=== PATIENT | female | born 1995 | race African-American/Black ===

== ENCOUNTER 2020-03-28 16:13 | Inpatient (IN) | payer BC ==
[~2020-03-28] VITALS: Ht 157.5 cm; Wt 56.8 kg
[2020-03-28] MEDS ORDERED: MORPHINE SULFATE 10 MG/ML VIAL. IV ONE (16:45)
[2020-03-28 16:56] LABS: BILIRUBIN,URINE NEGATIVE (NEG); CLARITY,URINE CLEAR; COLOR,URINE AMBER; NITRITE,URINE NEGATIVE (NEG); PH,URINE 5.5 (<5.0-8.0); PROTEIN,URINE NEGATIVE (NEG-TRACE); UROBILINOGEN,URINE 0.2 mg/dL (0.2 mg/dL)
[2020-03-28 17:00] LABS: BARBITURATES NEG (NEG); BENZODIAZEPINES NEG (NEG); CANNABINOIDS NEG (NEG); COCAINE NEG (NEG); METHADONE NEG (NEG); OPIATES NEG (NEG); PHENCYCLIDINE NEG (NEG)
[2020-03-28 17:02] LABS: SQUAMOUS EPITHELIAL CELL,UR MOD /LPF
[2020-03-28 17:04] LABS: BACTERIA,URINE MODERATE /HPF (0-FEW); RBC,URINE RARE /HPF (0-2); WBC,URINE OCC /HPF (0-4)
[2020-03-28 17:09] LABS: AMPHETAMINE/METHAMPHETAMINE NEG (NEG)
[2020-03-28 17:16] LABS: BASO % 0 % (0-3); EOS % 0 % (0-3); HEMATOCRIT 30.8 % (36.0-47.0); HEMOGLOBIN 10.6 g/dL (12.0-15.5); LYMPH # 0.7 x10^3/uL (1.0-4.8); LYMPH % 8 % (24-48); MEAN CORPUSCULAR HEMOGLOBIN 30 pg (25-35); MEAN CORPUSCULAR HGB CONC 35 g/dL (31-37); MEAN CORPUSCULAR VOLUME 88 fL (79-100); MONO # 0.5 x10^3/uL (0.0-1.1); MONO % 5 % (0-9); NEUT # 8.1 x10^3/uL (1.8-7.7); NEUT % 87 % (31-73); PLATELET COUNT 333 x10^3/uL (140-400); RED BLOOD COUNT 3.52 x10^6/uL (3.50-5.40); RED CELL DISTRIBUTION WIDTH 13.1 % (11.5-14.5); WHITE BLOOD COUNT 9.3 x10^3/uL (4.0-11.0)
[2020-03-28 17:25] LABS: CALCIUM 8.8 mg/dL (8.5-10.1); CREATININE 0.9 mg/dL (0.6-1.0); GFR 93.1
[2020-03-28 17:31] LABS: ALBUMIN 3.4 g/dL (3.4-5.0); ALBUMIN/GLOBULIN RATIO 0.9 (1.0-1.7); TOTAL BILIRUBIN 0.4 mg/dL (0.2-1.0); TOTAL PROTEIN 7.1 g/dL (6.4-8.2)
--- NOTE | 2020-03-28 17:46 | RAD ---
OB ultrasound less than 14 weeks and transvaginal OB ultrasound HISTORY: Vaginal bleeding and pain, miscarriage last week Sonographic examination of the was performed by transabdominal and endovaginal technique. Multiple static images were obtained. Ultrasound transvaginal less than 14 weeks: The endometrium measures 1.4 cm in diameter. The junctional zone of the uterus is discrete. There is a complex fluid collection superior to the uterus. Complex fluid is seen in the right adnexa. The ovaries are not seen. Transvaginal OB ultrasound: The endometrium is better seen and measures 9 mm in thickness. There is complex free fluid seen. There is no yolk sac or gestational sac. IMPRESSION: Abnormal study with significant complex free fluid and no evidence of intrauterine . This could be a ruptured ectopic . The patient has a history of miscarriage and therefore correlation with serial quantitative beta hCG is recommended. If the beta hCG is 0, this could be a ruptured hemorrhagic cyst. Electronically signed by: Leif Scott III, MD (03/28/2020 5:43 PM) [facility]
[2020-03-28] MEDS ORDERED: MORPHINE SULFATE 4 MG/ML VIAL. IV PRN (19:00)
[2020-03-28] MEDS ORDERED: ONDANSETRON PF 4 MG/2 ML VIAL. IV PRN (19:00)
[2020-03-28] MEDS ORDERED: IV NORMAL SALINE 1000ML BAG 1,000 ML IV ONE (19:00)
--- NOTE | 2020-03-28 19:19 | PHYS DOC ---
Past Medical History Past Medical History: No Pertinent History Past Surgical History: No Surgical History Smoking Status: Never Smoker Alcohol Use: None General Adult EDM: Chief Complaint: ABDOMINAL PAIN HPI: HPI: Patient is a 24 year old female patient with no significant medical history who presents today complaining of vaginal bleeding in as well as severe left lower quadrant abdominal pain. Patient states 2 weeks ago she was seen at [facility] for lower abdominal pain and had an incidental finding of a positive test. At that point she became a 2 para 0, 1 miscarriage. She states she was evaluated and sent home. She states 3 days later she developed increased lower abdominal pain specifically on the left, she states she went to [facility] ED, she states she was evaluated and told she is having a miscarriage. She states she has had increased abdominal pain, she states the bleeding has not worsened is been small to trace amount since she was seen at [facility] ED. She states today that left lower quadrant pain got worse. She describes the pain as sharp and constant worse when she sits up. Denies any nausea or vomiting. Denies any fever. She states she has an appointment to follow-up with her own [employer] on April 06, 2020. She states the pain is worse she cannot wait until then. She states she was started on Flagyl for BV a couple days ago when she was seen at [facility] ED. Review of Systems: Review of Systems: Constitutional: Denies fever or chills. [] Eyes: Denies change in visual acuity. [] HENT: Denies nasal congestion or sore throat. [] Respiratory: Denies cough or shortness of breath. [] Cardiovascular: Denies chest pain or edema. [] GI: Reports left lower quadrant abdominal pain and vaginal bleeding, denies nausea, vomiting, bloody stools or diarrhea. [] : Denies dysuria. [] Musculoskeletal: Denies back pain or joint pain. [] Integument: Denies rash. [] Neurologic: Denies headache, focal weakness or sensory changes. [] Psychiatric: Denies depression or anxiety. [] Heart Score: Risk Factors: Risk Factors: DM, Current or recent (<one month) smoker, HTN, HLP, family history of CAD, obesity. Risk Scores: Score 0 - 3: 2.5% MACE over next 6 weeks - Discharge Home Score 4 - 6: 20.3% MACE over next 6 weeks - Admit for Clinical Observation Score 7 - 10: 72.7% MACE over next 6 weeks - Early Invasive Strategies Current Medications: Current Medications Medications (Trade) Dose Ordered Sig/Humphrey Start Time Stop Time Status Last Admin Dose Admin Morphine Sulfate (Morphine Sulfate) 5 mg 1X ONCE 03/28/20 16:45 03/28/20 17:04 DC 03/28/20 17:33 5 MG Allergies: Allergies: Allergies Coded Allergies Type Severity Reaction Last Updated Verified No Known Drug Allergies 03/28/20 No Physical Exam: PE: Constitutional: Well developed, well nourished, no acute distress, non-toxic appearance. [] HENT: Normocephalic, atraumatic, bilateral external ears normal, oropharynx moist, no oral exudates, nose normal. [] Eyes: PERRLA, EOMI, conjunctiva normal, no discharge. [] Neck: Normal range of motion, no tenderness, supple, no stridor. [] Cardiovascular:Heart rate regular rhythm, no murmur [] Lungs & Thorax: Bilateral breath sounds clear to auscultation [] Abdomen: Bowel sounds normal, soft, no tenderness, no masses, no pulsatile masses. [] Pelvic exam External pelvic appears normal, cervix is visualized, appears closed, there is small amount of dark blood in the vaginal vault, there is moderate left adnexal tenderness, no right adnexal tenderness, no CMT. Skin: Warm, dry, no erythema, no rash. [] Back: No tenderness, no CVA tenderness. [] Extremities: No tenderness, no cyanosis, no clubbing, ROM intact, no edema. [] Neurologic: Alert and oriented X 3, normal motor function, normal sensory function, no focal deficits noted. [] Psychologic: Affect normal, judgement normal, mood normal. [] Current Patient Data: Labs: Laboratory Tests Test 03/28/20 16:24 03/28/20 16:31 03/28/20 17:05 Urine Collection Type Unknown Urine Color Nesha Urine Clarity Clear Urine pH 5.5 (<5.0-8.0) Urine Specific [place] >=1.030 (1.000-1.030) Urine Protein Negative mg/dL (NEG-TRACE) Urine Glucose (UA) Negative mg/dL (NEG) Urine Ketones (Stick) 40 mg/dL (NEG) Urine Blood Small (NEG) Urine Nitrite Negative (NEG) Urine Bilirubin Negative (NEG) Urine Urobilinogen Dipstick 0.2 mg/dL (0.2 mg/dL) Urine Leukocyte Esterase Negative (NEG) Urine RBC Rare /HPF (0-2) Urine WBC Occ /HPF (0-4) Urine Squamous Epithelial Cells Mod /LPF Urine Bacteria Moderate /HPF (0-FEW) Urine Mucus Marked /LPF Urine Opiates Screen Neg (NEG) Urine Methadone Screen Neg (NEG) Urine Barbiturates Neg (NEG) Urine Phencyclidine Screen Neg (NEG) Urine Amphetamine/Methamphetamine Neg (NEG) Urine Benzodiazepines Screen Neg (NEG) Urine Cocaine Screen Neg (NEG) Urine Cannabinoids Screen Neg (NEG) Urine Ethyl Alcohol Neg (NEG) POC Urine HCG, Qualitative Hcg positive (Negative) White Blood Count 9.3 x10^3/uL (4.0-11.0) Red Blood Count 3.52 x10^6/uL (3.50-5.40) Hemoglobin 10.6 g/dL (12.0-15.5) L Hematocrit 30.8 % (36.0-47.0) L Mean Corpuscular Volume 88 fL (79-100) Mean Corpuscular Hemoglobin 30 pg (25-35) Mean Corpuscular Hemoglobin Concent 35 g/dL (31-37) Red Cell Distribution Width 13.1 % (11.5-14.5) Platelet Count 333 x10^3/uL (140-400) Neutrophils (%) (Auto) 87 % (31-73) H Lymphocytes (%) (Auto) 8 % (24-48) L Monocytes (%) (Auto) 5 % (0-9) Eosinophils (%) (Auto) 0 % (0-3) Basophils (%) (Auto) 0 % (0-3) Neutrophils # (Auto) 8.1 x10^3/uL (1.8-7.7) H Lymphocytes # (Auto) 0.7 x10^3/uL (1.0-4.8) L Monocytes # (Auto) 0.5 x10^3/uL (0.0-1.1) Eosinophils # (Auto) 0.0 x10^3/uL (0.0-0.7) Basophils # (Auto) 0.0 x10^3/uL (0.0-0.2) Platelet Estimate Pending Maternal Serum HCG Beta Subunit 803 mIU/mL (0-5) H Sodium Level 136 mmol/L (136-145) Potassium Level 4.0 mmol/L (3.5-5.1) Chloride Level 102 mmol/L (98-107) Carbon Dioxide Level 26 mmol/L (21-32) Anion Gap 8 (6-14) Blood Urea Nitrogen 16 mg/dL (7-20) Creatinine 0.9 mg/dL (0.6-1.0) Estimated GFR (Cockcroft-Gault) 93.1 BUN/Creatinine Ratio 18 (6-20) Glucose Level 100 mg/dL (70-99) H Calcium Level 8.8 mg/dL (8.5-10.1) Total Bilirubin 0.4 mg/dL (0.2-1.0) Aspartate Amino Transferase (AST) 21 U/L (15-37) Alanine Aminotransferase (ALT) 58 U/L (14-59) Alkaline Phosphatase 45 U/L (46-116) L Total Protein 7.1 g/dL (6.4-8.2) Albumin 3.4 g/dL (3.4-5.0) Albumin/Globulin Ratio 0.9 (1.0-1.7) L Ethyl Alcohol Level < 10 mg/dL (0-10) Laboratory Tests 03/28/20 17:05 Laboratory Tests 03/28/20 17:05 Microbiology 03/28/20 Wet Prep - Final, Complete Vital Signs: Vital Signs Date Time Temp Pulse Resp B/P (MAP) Pulse Ox O2 Delivery O2 Flow Rate FiO2 03/28/20 19:11 16 98 Room Air 03/28/20 16:30 97.8 108 134/62 (86) 97.8 EKG: EKG: [] Radiology/Procedures: Radiology/Procedures: PROCEDURE: OB <14 WKS W/TV OB ultrasound less than 14 weeks and transvaginal OB ultrasound HISTORY: Vaginal bleeding and pain, miscarriage last week Sonographic examination of the was performed by transabdominal and endovaginal technique. Multiple static images were obtained. Ultrasound transvaginal less than 14 weeks: The endometrium measures 1.4 cm in diameter. The junctional zone of the uterus is discrete. There is a complex fluid collection superior to the uterus. Complex fluid is seen in the right adnexa. The ovaries are not seen. Transvaginal OB ultrasound: The endometrium is better seen and measures 9 mm in thickness. There is complex free fluid seen. There is no yolk sac or gestational sac. IMPRESSION: Abnormal study with significant complex free fluid and no evidence of intrauterine . This could be a ruptured ectopic . The patient has a history of miscarriage and therefore correlation with serial quantitative beta hCG is recommended. If the beta hCG is 0, this could be a ruptured hemorrhagic cyst. Electronically signed by: Maurisio Scott III, MD (03/28/2020 5:43 PM) [facility] DICTATED and SIGNED BY: MAURISIO SCOTT III, MD DATE: 03/28/201742 Course & Med Decision Making: Course & Med Decision Making Pertinent Labs and Imaging studies reviewed. (See chart for details) This is a 24-year-old female patient presenting to the ED today complaining of vaginal bleeding and abdominal pain in . See HPI. Patient was seen 2 weeks ago at [facility] and was told she is , this was an incidental finding. She started bleeding 3 days later and was seen at [facility] ED and was told she is having a miscarriage. She states she is continued bleeding but small amount to trace amount of blood, she states she is continued to have abdominal pain specifically in the left lower quadrant which is gotten worse today. Positive urine hCG, beta-hCG 803, hemoglobin 10.6, hematocrit 30.8. Temperature 97.8, heart rate 108, respirations 16, blood pressure 134/62, O2 sats 98% on room air. OB ultrasound was noted for significant amount of complex free fluid with no evidence of IUP. This could be an ectopic considering her history of miscarriage last week. Spoke with Dr. Das who accepted patient for admission. Amy Disclaimer: Amy Disclaimer: This electronic medical record was generated, in whole or in part, using a voice recognition dictation system. Departure Departure Impression: Primary Impression: Ruptured ectopic Disposition: ADMITTED INPATIENT Condition: STABLE Referrals: UNKNOWN PCP NAME (PCP) Justicifation of Admission Dx: Justifications for Admission: Justification of Admission Dx: Yes (raptured ectopic ) NOÉ FRIEND APRN Mar 28, 2020 19:19
[2020-03-28 19:21] LABS: % BASOS 1 % (0-3); % LYMPHS 9 % (24-48); % MONOS 6 % (0-10); % SEGS 84 % (35-66); HYPOCHROMIA SLIGHT; PLT ESTIMATE ADEQUATE (ADEQUATE)
[2020-03-28 19:50] VITALS: BP 110/68
[2020-03-28] MEDS ORDERED: oxyCODONE/APAP 5/325 1 TAB TABLET PO PRN ×2 (20:00→20:15)
[2020-03-28] MEDS ORDERED: IV NORMAL SALINE 1000ML BAG 1,000 ML IV PRN (20:00)
[2020-03-29 00:15] VITALS: BP 114/59
[2020-03-29 04:40] VITALS: BP 106/58
[2020-03-29 07:56] LABS: BASO % 0 % (0-3); EOS # 0.1 x10^3/uL (0.0-0.7); EOS % 2 % (0-3); HEMATOCRIT 27.6 % (36.0-47.0); HEMOGLOBIN 9.1 g/dL (12.0-15.5); LYMPH # 1.3 x10^3/uL (1.0-4.8); LYMPH % 17 % (24-48); MEAN CORPUSCULAR HEMOGLOBIN 29 pg (25-35); MEAN CORPUSCULAR HGB CONC 33 g/dL (31-37); MEAN CORPUSCULAR VOLUME 88 fL (79-100); MONO # 0.5 x10^3/uL (0.0-1.1); MONO % 7 % (0-9); NEUT # 5.5 x10^3/uL (1.8-7.7); NEUT % 74 % (31-73); PLATELET COUNT 288 x10^3/uL (140-400); RED BLOOD COUNT 3.12 x10^6/uL (3.50-5.40); RED CELL DISTRIBUTION WIDTH 12.9 % (11.5-14.5); WHITE BLOOD COUNT 7.5 x10^3/uL (4.0-11.0)
--- NOTE | 2020-03-29 09:25 | PDOC ---
GENERAL General: 24yrs old lady one . came to ER for with bleeding. VITAL SIGNS Vital Signs/I&O: Vital Signs Date Time Temp Pulse Resp B/P (MAP) Pulse Ox O2 Delivery O2 Flow Rate FiO2 03/29/20 04:40 98.2 77 14 106/58 (74) 100 Room Air 98.2 I & O 03/28/20 03/28/20 03/29/20 15:00 23:00 07:00 Intake Total 450 ml Balance 450 ml ALLERGIES Allergies: Allergies Coded Allergies Type Severity Reaction Last Updated Verified No Known Drug Allergies 03/28/20 No MEDS Medications: Current Medications Medications (Trade) Dose Ordered Sig/Humphrey Route PRN Reason Start Time Stop Time Status Last Admin Dose Admin Morphine Sulfate (Morphine Sulfate) 5 mg 1X ONCE IV 03/28/20 16:45 03/28/20 17:04 DC 03/28/20 17:33 Ondansetron HCl (Zofran) 4 mg PRN Q8HRS PRN IV NAUSEA/VOMITING 03/28/20 19:00 03/29/20 18:59 03/28/20 19:11 Morphine Sulfate (Morphine Sulfate) 4 mg PRN Q2HR PRN IV PAIN 03/28/20 19:00 03/29/20 18:59 03/28/20 19:11 Sodium Chloride 1,000 ml @ 100 mls/hr 1X ONCE IV 03/28/20 19:00 03/28/20 20:48 DC 03/28/20 19:12 Sodium Chloride 1,000 ml @ 125 mls/hr CONT PRN IV MAINT. IV 03/28/20 20:00 03/29/20 04:20 Oxycodone/ Acetaminophen (Percocet 5/325) 2 tab PRN Q4HRS PRN PO SEVERE PAIN 03/28/20 20:15 03/28/20 21:21 LAB Lab: Laboratory Tests Test 03/28/20 16:24 03/28/20 16:31 03/28/20 17:05 03/29/20 07:25 Urine Collection Type Unknown Urine Color Nesha Urine Clarity Clear Urine pH 5.5 (<5.0-8.0) Urine Specific [place] >=1.030 (1.000-1.030) Urine Protein Negative mg/dL (NEG-TRACE) Urine Glucose (UA) Negative mg/dL (NEG) Urine Ketones (Stick) 40 mg/dL (NEG) Urine Blood Small (NEG) Urine Nitrite Negative (NEG) Urine Bilirubin Negative (NEG) Urine Urobilinogen Dipstick 0.2 mg/dL (0.2 mg/dL) Urine Leukocyte Esterase Negative (NEG) Urine RBC Rare /HPF (0-2) Urine WBC Occ /HPF (0-4) Urine Squamous Epithelial Cells Mod /LPF Urine Bacteria Moderate /HPF (0-FEW) Urine Mucus Marked /LPF Urine Opiates Screen Neg (NEG) Urine Methadone Screen Neg (NEG) Urine Barbiturates Neg (NEG) Urine Phencyclidine Screen Neg (NEG) Urine Amphetamine/Methamphetamine Neg (NEG) Urine Benzodiazepines Screen Neg (NEG) Urine Cocaine Screen Neg (NEG) Urine Cannabinoids Screen Neg (NEG) Urine Ethyl Alcohol Neg (NEG) POC Urine HCG, Qualitative Hcg positive (Negative) White Blood Count 9.3 x10^3/uL (4.0-11.0) 7.5 x10^3/uL (4.0-11.0) Red Blood Count 3.52 x10^6/uL (3.50-5.40) 3.12 x10^6/uL (3.50-5.40) L Hemoglobin 10.6 g/dL (12.0-15.5) L 9.1 g/dL (12.0-15.5) L Hematocrit 30.8 % (36.0-47.0) L 27.6 % (36.0-47.0) L Mean Corpuscular Volume 88 fL (79-100) 88 fL (79-100) Mean Corpuscular Hemoglobin 30 pg (25-35) 29 pg (25-35) Mean Corpuscular Hemoglobin Concent 35 g/dL (31-37) 33 g/dL (31-37) Red Cell Distribution Width 13.1 % (11.5-14.5) 12.9 % (11.5-14.5) Platelet Count 333 x10^3/uL (140-400) 288 x10^3/uL (140-400) Neutrophils (%) (Auto) 87 % (31-73) H 74 % (31-73) H Lymphocytes (%) (Auto) 8 % (24-48) L 17 % (24-48) L Monocytes (%) (Auto) 5 % (0-9) 7 % (0-9) Eosinophils (%) (Auto) 0 % (0-3) 2 % (0-3) Basophils (%) (Auto) 0 % (0-3) 0 % (0-3) Neutrophils # (Auto) 8.1 x10^3/uL (1.8-7.7) H 5.5 x10^3/uL (1.8-7.7) Lymphocytes # (Auto) 0.7 x10^3/uL (1.0-4.8) L 1.3 x10^3/uL (1.0-4.8) Monocytes # (Auto) 0.5 x10^3/uL (0.0-1.1) 0.5 x10^3/uL (0.0-1.1) Eosinophils # (Auto) 0.0 x10^3/uL (0.0-0.7) 0.1 x10^3/uL (0.0-0.7) Basophils # (Auto) 0.0 x10^3/uL (0.0-0.2) 0.0 x10^3/uL (0.0-0.2) Segmented Neutrophils % 84 % (35-66) H Lymphocytes % 9 % (24-48) L Monocytes % 6 % (0-10) Basophils % 1 % (0-3) Platelet Estimate Adequate (ADEQUATE) Hypochromasia Slight Maternal Serum HCG Beta Subunit 803 mIU/mL (0-5) H Sodium Level 136 mmol/L (136-145) Potassium Level 4.0 mmol/L (3.5-5.1) Chloride Level 102 mmol/L (98-107) Carbon Dioxide Level 26 mmol/L (21-32) Anion Gap 8 (6-14) Blood Urea Nitrogen 16 mg/dL (7-20) Creatinine 0.9 mg/dL (0.6-1.0) Estimated GFR (Cockcroft-Gault) 93.1 BUN/Creatinine Ratio 18 (6-20) Glucose Level 100 mg/dL (70-99) H Calcium Level 8.8 mg/dL (8.5-10.1) Total Bilirubin 0.4 mg/dL (0.2-1.0) Aspartate Amino Transferase (AST) 21 U/L (15-37) Alanine Aminotransferase (ALT) 58 U/L (14-59) Alkaline Phosphatase 45 U/L (46-116) L Total Protein 7.1 g/dL (6.4-8.2) Albumin 3.4 g/dL (3.4-5.0) Albumin/Globulin Ratio 0.9 (1.0-1.7) L Ethyl Alcohol Level < 10 mg/dL (0-10) Laboratory Tests 03/28/20 17:05 03/29/20 07:25 Laboratory Tests 03/28/20 17:05 ASSESSMENT & PLAN A&P Vital signs stable. Patient complaining of Pain in Rt Lower Quadrant. Not much vaginal bleeding. Has marked tenderness in RT LQ. Will schedule for Laparotomy Possible Salpingectomy. Justifications for Admission Other Justification CARLOTTA BACON MD Mar 29, 2020 09:25
[2020-03-29] MEDS ORDERED: HYDROmorphone 2 MG/ML VIAL IV PRN (09:30)
[2020-03-29] MEDS ORDERED: fentaNYL PF VIAL 100 MCG/2 ML VIAL IV PRN ×2 (09:30)
[2020-03-29] MEDS ORDERED: LIDOCAINE 1% PF 2 ML VIAL. ID PRN (09:30)
[2020-03-29] MEDS ORDERED: IV RINGERS,LACTATED 1000ML 1,000 ML IV SCH (09:30)
[2020-03-29] MEDS ORDERED: PROCHLORPERAZINE 10 MG/2 ML VIAL. IV PRN (09:30)
[2020-03-29] MEDS ORDERED: MORPHINE SULFATE 2 MG/ML VIAL. IV PRN (09:30)
[2020-03-29] MEDS ORDERED: ONDANSETRON PF 4 MG/2 ML VIAL. IV PRN (09:30)
--- NOTE | 2020-03-29 09:37 | HP ---
ADMIT DATE: 03/28/2020 CHIEF COMPLAINT AND HISTORY OF PRESENT ILLNESS: This patient is a 24-year-old -[place] female who is a 2, para 0, history of 1 and her last menstrual period was 02/08/2020 and she did have a test that was positive and has a hCG level of 800 in the Emergency Room and she came because of lower abdominal pain and bleeding. The patient was seen in the ER, admitted for possible ectopic. Her sonogram shows no intrauterine and complex fluid collection on the right side lower quadrant. PHYSICAL EXAMINATION: VITAL SIGNS: Reveals vital signs being stable. HEAD, EYES, NOSE, THROAT: Within normal limits. LUNGS: Clear. HEART: Sounds regular sinus rhythm. ABDOMEN: Soft. PELVIC: Shows external genitalia being normal. No bleeding noted at the time of the examination. On bimanual exam, uterus feels normal size and the left adnexa is normal. Right adnexal area is quite tender to palpate and feels also fullness in the right lower quadrant. EXTREMITIES: No edema of feet. IMPRESSION: Pelvic pain, rule out ectopic . PLAN: Laparotomy, possible salpingectomy. The details of the surgery, the risks and complications have been explained to the patient and she is willing for the surgery at the present time. CARLOTTA BACON MD DR: ESTRELLA/camille JOB#: [id number] / [id number]
--- NOTE | 2020-03-29 11:00 | NUR ---
Pt has decided after discussing with family that she does not want to have surgery unless it is the last resort. Pt has not taken any pain medicine since 2100 last night. Pt has only requested a heating pack for pain control. Vital signs are stable and she denies any N/V at this time. Will call Dr. Conrteras and let her know.
[2020-03-29 11:20] VITALS: BP 114/66
--- NOTE | 2020-03-29 12:30 | NUR ---
Pt's S/O brought her some nicholask daniela, pt ate and had not c/o N/V. Will continue to monitor and support.
[2020-03-29 18:00] VITALS: BP 111/66
[2020-03-29 18:07] LABS: HEMATOCRIT 26.3 % (36.0-47.0); RED BLOOD COUNT 2.99 x10^6/uL (3.50-5.40); WHITE BLOOD COUNT 6.4 x10^3/uL (4.0-11.0)
[2020-03-29 18:08] LABS: RED CELL DISTRIBUTION WIDTH 12.9 % (11.5-14.5)
--- NOTE | 2020-03-29 18:29 | NUR ---
Pt verbalizes that she would like to go home tonight if possible. Pt has eaten two meals without c/o N/V, VSS, hgh is 9.0, pt verbalizes she feels much better than she did last night. She has not taken any pain medication since [address] Will call Dr. Contreras to inform her.
--- NOTE | 2020-03-29 18:34 | NUR ---
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
--- NOTE | 2020-03-29 19:05 | NUR ---
Discharge and follow up instructions reviewed and given to pt along with information regarding a ruptured ectopic . Pt verbalized understanding, I instructed pt of to return to hospital if symptoms worsen. Pt taken out of the hospital per w/c with her s/o and family by her side.
[2020-03-30 19:09] LABS: GC PROBE Negative (Negative)
== END 2020-03-29 19:05 | disposition home or self-care (01) | DRG 833 ==
LOC: ER 16:13 → 3 NORTH 18:29
PROVIDERS: ADMIT Obstetrics & Gynecology; ATTEND Obstetrics & Gynecology
DX: O00.90 Unspecified ectopic pregnancy without intrauterine pregnancy (principal)
CPT/HCPCS: 36415; 76801; 76817; 80053; 80307; 81001; 81025; 84702; 85007; 85025; 85027; 86850; 86900; 86901; 87086; 87426; 87491; 87591; 96374; 96375; 96376; 99285; G0480; J2270; J2405; J7030; Q0111; G0378; U0003-CS

== ENCOUNTER → 2020-04-07 | Emergency (ER) | payer BC ==
[2020-03-29 18:00] VITALS: BP 111/66
== END | disposition left against medical advice (07) ==
LOC: ER 19:06
DX: R10.32 Left lower quadrant pain (principal); Z53.21 Procedure and treatment not carried out due to patient leaving prior to being seen by health care provider
CPT/HCPCS: 81025